=== PATIENT | female | born 1980 | race Caucasian/White ===

== ENCOUNTER 2017-02-16 10:01 | Day surgery (SDC) | payer OTHER ==
[~2017-02-16 10:01] MED LIST: ALBUTEROL2.5 MG/3 M INH; AUGMENTIN 875-11 TAB PO; AUGMENTIN ES-6125 ML; BENADRYL25 MG PO; CLARITIN 10 MG10 MG PO; HEPARIN SOD5000 U/ML SQ; LOVENOX INJ100 MG/ML SQ; LOVENOX150 MG/ML SQ; PRENATAL COMPLE1 TAB PO; PULMICORT FLEX90 MCG INH; SALINE NASAL SP45 ML NS; VENTOLIN HFA18 GM INH; ZOFRAN8 MG PO
[2017-02-16] MEDS ORDERED: AZELASTINE137 MCG/0. NASAL (10:24)
[2017-02-16] MEDS ORDERED: CARBINOXAMINE MALEAT PO (10:25)
[2017-02-16] MEDS ORDERED: BENTYL10 MG PO (10:26)
[2017-02-16 10:40] VITALS: BP 121/73; BMI 48.2
[2017-02-16 11:31] LABS: HEMATOCRIT 44.5 % (36.0-48.0); HEMOGLOBIN 14.6 g/dL (12-16); MCH 31.1 pg (26.0-34.0); MCHC 32.8 g/dL (31.0-37.0); MCV 94.9 fL (80.0-100.0); MEAN PLATELET VOLUME 11.8 fL (7.4-10.4); RBC 4.69 10x6/uL (4.00-5.40); RDW 12.9 % (11.5-14.5); WBC 6.6 10x3/uL (4.8-10.8)
--- NOTE | 2017-02-16 13:56 | NUR ---
1400 DISCHARGE INSTRUCTIONS COMPLETE. PRESCRIPTION FOR PROTONIX GIVEN. PT HAS NO QUESTIONS OR CONCERNS AT THIS TIME. PT ESCORTED OUT BY VOLUNTEER.
--- NOTE | 2017-02-16 14:40 | OP ---
PATIENT NAME: SCOTTIE RM MEDICAL RECORD: [id number] :80 LOCATION:[facility] ADMISSION DATE: SURGEON: QUAN CHAVEZ DO DATE OF OPERATION: 02/16/2017 PROCEDURE: EGD with biopsies. INDICATIONS FOR PROCEDURE: Dysphagia, heartburn, nausea. SCOPE: Olympus video gastroscope. MEDICATIONS: Propofol 300 mg IV per anesthesia. ESTIMATED BLOOD LOSS: Minimal. COMPLICATIONS: None. FINDINGS: Informed consent was given. The patient was made comfortable with the above medication. After reaching an adequate level of sedation by slow IV push, the patient was placed on her left side. The endoscope was then advanced under direct visualization through the mouth to the second portion of the duodenum. The upper, middle, and lower thirds of the esophagus appeared normal. At the GE junction, there was some inflammation present consistent with LA class A reflux-induced esophagitis. Cold forceps biopsies were taken at the GE junction to rule out Eckert's esophagus. The endoscope was advanced beyond the GE junction into the stomach and retroflexed to view the cardia, where a small sliding hiatal hernia was present. The mucosa of the entire stomach appeared normal without ulcerations, erosions, or other abnormalities. Random biopsies were taken to submit for histology and to rule out H. pylori. The endoscope was advanced beyond the pylorus into the duodenum where the entire examined duodenum appeared normal. The scope was then withdrawn from the patient. The patient tolerated the procedure well and there were no complications. IMPRESSION: 1. LA class A reflux induced esophagitis, biopsies taken. 2. Small sliding hiatal hernia. PLAN AND RECOMMENDATIONS: 1. Discharge home when recovery parameters are met. 2. Follow up biopsy specimen results. 3. Start Protonix or equivalent PPI at 40 mg daily in the a.m. times 8 weeks. 4. Consider gastric emptying study regarding the nausea if symptoms do not improve with Protonix. 5. Proceed with colonoscopy as scheduled. TRANSINT:[id number] Voice Confirmation ID: [id number] DOCUMENT ID: [id number] OPERATIVE REPORT [id number] SCOTTIE RM QUAN CHAVEZ DO at 1440 CC: [id number] DICTATION DATE: 02/16/17 1300 ACCOUNTING ADMINISTRATOR: 02/16/17 1318 [facility] 02/16/17 [facility] [address] [facility] [place] [address]
== END 2017-02-16 14:00 | disposition home or self-care (01) ==
LOC: D.OPS 10:01
PROVIDERS: Anesthesiology
DX: R13.10 Dysphagia, unspecified (principal); R12 Heartburn; K21.0 Gastro-esophageal reflux disease with esophagitis; R11.0 Nausea; J45.909 Unspecified asthma, uncomplicated; Z01.812 Encounter for preprocedural laboratory examination

== ENCOUNTER 2017-02-21 10:27 | Day surgery (SDC) | payer OTHER ==
[~2017-02-21 10:27] MED LIST changes: +AZELASTINE137 MCG/0. NASAL; +BENTYL10 MG PO; +CARBINOXAMINE MALEAT PO
[2017-02-21] MEDS ORDERED: PROTONIX40 MG PO (12:06)
[2017-02-21 12:14] VITALS: BP 103/66; BMI 48.2
[2017-02-21 13:26] LABS: CALC OSMOLALITY 278 mosm/kg (275-300); CALCIUM 8.8 mg/dL (8.5-10.1); CARBON DIOXIDE 25.5 mmol/L (21.0-32.0); CHLORIDE - SERUM 107 mmol/L (98-107); CREATININE - SERUM 0.6 mg/dL (0.6-1.3); GLUCOSE 83 mg/dL (74-106); POTASSIUM - SERUM 4.7 mmol/L (3.5-5.1); SODIUM 142 mmol/L (136-145); UREA NITROGEN 5 mg/dL (7-18); eGFR NON AFRICAN AMERICAN > 90 mL/min (90-120)
[2017-02-21 14:21] LABS: BASOPHILS 0.7 % (0-2); EOSINOPHILS 2.9 % (0-7); HEMATOCRIT 41.7 % (36.0-48.0); HEMOGLOBIN 13.8 g/dL (12-16); IMMATURE GRANULOCYTES 0.5 % (0-5); MCH 30.8 pg (26.0-34.0); MCHC 33.1 g/dL (31.0-37.0); MCV 93.1 fL (80.0-100.0); MEAN PLATELET VOLUME 12.5 fL (7.4-10.4); MONOCYTES 9.9 % (2-11); PLATELET COUNT 217 10x3/uL (130-400); RBC 4.48 10x6/uL (4.00-5.40); RDW 13.1 % (11.5-14.5); WBC 5.8 10x3/uL (4.8-10.8)
--- NOTE | 2017-02-21 15:18 | NUR ---
1520 DISCHARGE INSTRUCTIONS COMPLETE. PT HAS NO QUESTIONS OR CONCERNS AT THIS TIME. FOLLOW UP APPOINTMENT MADE. ESCORTED OUT BY VOLUNTEER.
--- NOTE | 2017-02-22 09:09 | OP ---
PATIENT NAME: SCOTTIE RM MEDICAL RECORD: [id number] :80 LOCATION:[facility] ADMISSION DATE: SURGEON: QUAN CHAVEZ DO DATE OF OPERATION: 02/21/2017 PROCEDURE: Colonoscopy with polypectomy and biopsies. INDICATIONS FOR PROCEDURE: Periumbilical abdominal pain, altered bowel function, hematochezia. SCOPE: Olympus video pediatric colonoscope. MEDICATIONS: Propofol 400 mg IV per anesthesia. WITHDRAWAL TIME: 7 minutes. ESTIMATED BLOOD LOSS: Minimal. COMPLICATIONS: None. FINDINGS: Informed consent was given. The patient was made comfortable with the above medication. After reaching an adequate level of sedation by slow IV push, the patient was placed on her left side. A digital rectal examination was performed and was normal. The endoscope was then advanced under direct visualization through the rectum to the terminal ileum. The scope was slowly withdrawn and the mucosa was carefully examined. The prep quality was good. On this examination, there was a single polyp located in the sigmoid to rectosigmoid junction. It was benign appearing and sessile and measured approximately 5 mm in diameter. It was removed using a hot forceps in one piece and completely retrieved. There were a few diverticula visualized in the sigmoid colon consistent with mild diverticulosis. There was no evidence of diverticulitis or other abnormalities. The remainder of the examination appeared normal. There were no findings consistent with colitis in any fashion. Random biopsies were taken from the ascending, transverse, descending, and sigmoid colon. Retroflexion was performed in the rectum with normal-appearing rectal wall. The endoscope was then withdrawn from the patient. The patient tolerated the procedure well and there were no complications. IMPRESSION: 1. Single benign-appearing sigmoid polyp removed using hot forceps. 2. Mild diverticulosis of the sigmoid colon. 3. Likely, irritable bowel syndrome, which is a mixed type as the cause of the abdominal pain and change in bowel habits. PLAN AND RECOMMENDATIONS: 1. Discharge home when recovery parameters are met. 2. High fiber diet. 3. Consider supplementation and diet with Metamucil 1-2 tablespoons daily. 4. We will increase dicyclomine to 20 mg twice daily as needed for abdominal pain or spasms as well as loose stools. 5. We will monitor for changes in stool with the increase in omeprazole and possible supplementation of fiber for further modifications in medications. Consider small bowel follow through regarding the abdominal pain in the mid abdomen. OPERATIVE REPORT [id number] SCOTTIE RM 6. Recall colonoscopy will be dependent on results of the biopsy specimen removed today. TRANSINT:[id number] Voice Confirmation ID: [id number] DOCUMENT ID: [id number] QUAN CHAVEZ DO at 0909 CC: [id number] DICTATION DATE: 02/21/17 1438 NUTRITION EDUCATOR: 02/21/[address] [facility] 02/21/17 [place] [id number] [place] [address]
== END 2017-02-21 15:20 | disposition home or self-care (01) ==
LOC: D.OPS 10:27
PROVIDERS: Anesthesiology
DX: R19.4 Change in bowel habit (principal); K63.5 Polyp of colon; J45.909 Unspecified asthma, uncomplicated; K21.9 Gastro-esophageal reflux disease without esophagitis; E66.9 Obesity, unspecified; Z01.812 Encounter for preprocedural laboratory examination

== ENCOUNTER 2018-09-15 12:35 | Emergency (ER) | payer MEDICAID ==
[~2018-09-15] VITALS: Ht 175.3 cm; Wt 140.2 kg
[~2018-09-15 12:35] MED LIST changes: +PROTONIX40 MG PO
[2018-09-15 12:40] VITALS: Ht 175.3 cm; Wt 140.2 kg
[2018-09-15] MEDS ORDERED: ZOFRAN8 MG PO (12:47)
[2018-09-15] MEDS ORDERED: OMEPRAZOLE20 M1 (12:48)
[2018-09-15] MEDS ORDERED: MOBIC7.5 MG PO (12:48)
[2018-09-15] MEDS ORDERED: BENTYL 20 MG TA20 MG PO (12:48)
[2018-09-15] MEDS ORDERED: ALDACTONE50 MG PO (12:48)
[2018-09-15] MEDS ORDERED: HYDROCODON-ACET15 ML PO (12:49)
[2018-09-15] MEDS ORDERED: ELIQUIS5 MG PO (12:49)
[2018-09-15] MEDS ORDERED: ZANAFLEX4 MG PO (12:50)
[2018-09-15] MEDS ORDERED: AZELASTINE137 MCG/0. NASAL (12:50)
[2018-09-15 13:26] LABS: BASOPHILS 0.2 % (0-2); EOSINOPHILS 0.4 % (0-7); HEMATOCRIT 44.9 % (36.0-48.0); HEMOGLOBIN 15.4 g/dL (12-16); IMMATURE GRANULOCYTES 0.3 % (0-5); LYMPHOCYTES 8.7 % (15-50); MCH 30.7 pg (26.0-34.0); MCHC 34.3 g/dL (31.0-37.0); MCV 89.4 fL (80.0-100.0); MEAN PLATELET VOLUME 11.3 fL (7.4-10.4); MONOCYTES 5.6 % (2-11); NEUTROPHILS 84.8 % (40-80); RBC 5.02 10x6/uL (4.00-5.40); RDW 13.2 % (11.5-14.5); WBC 11.1 10x3/uL (4.8-10.8)
[2018-09-15 13:27] LABS: PLATELET COUNT 268 10x3/uL (130-400)
[2018-09-15 13:37] LABS: ANION GAP 13.5 mmol/L (8-16); CALCIUM 9.3 mg/dL (8.5-10.1); CARBON DIOXIDE 25.1 mmol/L (21.0-32.0); CREATININE - SERUM 0.9 mg/dL (0.6-1.3); POTASSIUM - SERUM 3.6 mmol/L (3.5-5.1)
[2018-09-15] MEDS ORDERED: FLAGYL500 MG PO (14:17)
[2018-09-15] MEDS ORDERED: CIPRO500 MG PO (14:17)
[2018-09-15 15:05] VITALS: BP 106/66
== END 2018-09-15 15:30 | disposition home or self-care (01) ==
LOC: D.ER 12:35
PROVIDERS: Emergency Medicine
DX: K52.9 Noninfective gastroenteritis and colitis, unspecified (principal)

== ENCOUNTER → 2018-09-18 10:02 | Outpatient (CLI) | payer MEDICAID ==
[2018-09-15 12:40] VITALS: BMI 45.6
[~2018-09-18 10:02] MED LIST changes: +ALDACTONE50 MG PO; +BENTYL 20 MG TA20 MG PO; +CIPRO500 MG PO; +ELIQUIS5 MG PO; +FLAGYL500 MG PO; +HYDROCODON-ACET15 ML PO; +MOBIC7.5 MG PO; +OMEPRAZOLE20 M1; +ZANAFLEX4 MG PO
[2018-09-18 12:37] LABS: BASOPHILS 0.3 % (0-2); EOSINOPHILS 1.3 % (0-7); HEMATOCRIT 43.3 % (36.0-48.0); HEMOGLOBIN 14.3 g/dL (12-16); IMMATURE GRANULOCYTES 0.5 % (0-5); LYMPHOCYTES 23.2 % (15-50); MCH 29.9 pg (26.0-34.0); MCV 90.6 fL (80.0-100.0); MEAN PLATELET VOLUME 11.2 fL (7.4-10.4); MONOCYTES 8.3 % (2-11); NEUTROPHILS 66.4 % (40-80); PLATELET COUNT 277 10x3/uL (130-400); RBC 4.78 10x6/uL (4.00-5.40); RDW 13.2 % (11.5-14.5); WBC 10.5 10x3/uL (4.8-10.8)
== END | disposition home or self-care (01) ==
LOC: D.LAB 08:00 → D.RAD 10:30
PROVIDERS: ATTEND Internal Medicine Gastroenterology
DX: R10.9 Unspecified abdominal pain (principal); R19.4 Change in bowel habit; K21.9 Gastro-esophageal reflux disease without esophagitis; K92.1 Melena

== ENCOUNTER → 2018-09-22 08:42 | Outpatient (CLI) | payer MEDICAID ==
[2018-09-15 12:40] VITALS: BMI 45.6
== END | disposition home or self-care (01) ==
LOC: D.NM 08:42
PROVIDERS: ATTEND Internal Medicine Gastroenterology
DX: R10.9 Unspecified abdominal pain (principal); R19.4 Change in bowel habit; K21.9 Gastro-esophageal reflux disease without esophagitis; K92.1 Melena

== ENCOUNTER → 2019-07-09 08:09 | Outpatient (CLI) | payer OTHER ==
[2019-06-14 08:17] VITALS: BMI 45.6
[~2019-07-09 08:09] MED LIST changes: +FISH OIL 1,0001 CA1 PO; +HYDROCODON-ACE1 EA10 PO; +MAGNESIUM
== END | disposition home or self-care (01) ==
LOC: D.MRI 08:09
PROVIDERS: ATTEND Clinical Nurse Specialist Family Health
DX: M25.511 Pain in right shoulder (principal)